=== PATIENT | male | born 1965 | race Two or more races ===

== ENCOUNTER 2017-01-09 11:00 | Inpatient (IN) | payer OTHER ==
[~2017-01-09] VITALS: Ht 172.7 cm; Wt 77.3 kg
[2017-02-22] MEDS ORDERED: LEVO100T PO (08:50)
[2017-02-22] MEDS ORDERED: [UNRECOGNIZED DRUG - OTHER] PO (08:50)
[2017-03-11] MEDS ORDERED: COCAINE TOPICAL SOLN 4%, 4ML ONE ×2 (09:12→09:14)
[2017-03-11] MEDS ORDERED: LIDOCAINE/PF 1%-EPI 1:200K, 30ML ONE (09:12)
[2017-03-11] MEDS ORDERED: THROMBIN 5,000 UNIT VIAL TP ONE (09:12)
[2017-03-11] MEDS ORDERED: BACITRACIN 50,000 UNIT ONE (09:12)
[2017-03-11] MEDS ORDERED: BACITRACIN OINT 500U/GM, 15 GM ONE (09:12)
[2017-03-11 10:47] VITALS: BP 108/70
[2017-03-11] MEDS ORDERED: LIDOCAINE 1%, 2ML ONE (12:12)
[2017-03-11] MEDS ORDERED: LACTATED RINGERS 1,000 ML IV SCH (12:29)
[2017-03-11] MEDS ORDERED: LIDOCAINE 1%, 2ML SQ PRN (12:30)
[2017-03-11] MEDS ORDERED: FENTANYL PF 250 MCG/5ML ONE ×2 (13:16→14:47)
[2017-03-11] MEDS ORDERED: MIDAZOLAM 1 MG/ML, 2ML ONE (13:16)
[2017-03-11] MEDS ORDERED: NEOSTIGMINE 1 MG/ML, 10ML ONE (13:26)
[2017-03-11] MEDS ORDERED: GLYCOPYRROLATE 0.2MG/1ML ONE (13:26)
[2017-03-11] MEDS ORDERED: ROCURONIUM 10 MG/ML ONE (13:26)
[2017-03-11] MEDS ORDERED: PROPOFOL 10 MG/ML, 20ML ONE (13:26)
[2017-03-11] MEDS ORDERED: ONDANSETRON 2MG/ML, 2ML ONE (13:26)
[2017-03-11] MEDS ORDERED: CEFUROXIME 1.5 GM ONE ×2 (13:26→14:17)
[2017-03-11] MEDS ORDERED: HYDROCORTISONE 100 MG INJ. ONE (14:09)
[2017-03-11] MEDS ORDERED: OXYcodone 5 MG/5 ML ORAL.SOL UDC PO PRN (16:00)
[2017-03-11] MEDS ORDERED: METOPROLOL 1 MG/ML, 5ML IV PRN (16:00)
[2017-03-11] MEDS ORDERED: FENTANYL PF 100 MCG/2ML IV PRN ×2 (16:00→18:30)
[2017-03-11] MEDS ORDERED: HYDROmorphone 1 MG/ML, 1ML IV PRN (16:00)
[2017-03-11] MEDS ORDERED: MEPERIDINE/PF 25MG/0.5ML IVPush PRN (16:00)
[2017-03-11] MEDS ORDERED: hydrALAzine 20 MG/ML, 1ML IV PRN (16:00)
[2017-03-11] MEDS ORDERED: HALOPERIDOL 5 MG/ML IV ONE (16:00)
[2017-03-11] MEDS ORDERED: ACETAMINOPHEN 325 MG TABLET PO PRN ×2 (16:00→18:30)
[2017-03-11] MEDS ORDERED: ALBUTEROL/IPRATROPIUM 2.5MG/0.5MG, 3 ML NPPB PRN (16:00)
[2017-03-11] MEDS ORDERED: FENTANYL PF 100 MCG/2ML ONE (16:50)
[2017-03-11] MEDS ORDERED: OXYcodone 5 MG/5 ML ORAL.SOL UDC ONE (16:50)
[2017-03-11] MEDS ORDERED: ACETAMINOPHEN 650 MG SUPP PR PRN (18:30)
[2017-03-11] MEDS ORDERED: MAGNESIUM HYDROXIDE 8%, 30ML UDC PO PRN (18:30)
[2017-03-11] MEDS ORDERED: ONDANSETRON 2MG/ML, 2ML IV PRN (18:30)
[2017-03-11] MEDS ORDERED: HYDROmorphone 2MG TABLET PO PRN (18:30)
[2017-03-11 19:54] LABS: BLOOD UREA NITROGEN 12 mg/dL (7-18)
[2017-03-11] MEDS: D5%-0.9% NACL+KCL 20MEQ 1,000 ML IV SCH (20:49)
[2017-03-11] MEDS: CEFUROXIME 1.5 GM in SODIUM CHLORIDE 0.9% 50 ML IVPB SCH (22:18)
[2017-03-11] MEDS: HYDROCORTISONE 100 MG INJ. IVPush SCH (22:19)
[2017-03-12] MEDS: HYDROcodone/APAP 5/325 TABLET PO PRN ×4 (04:44→19:18)
[2017-03-12 05:00] LABS: BLOOD UREA NITROGEN 11 mg/dL (7-18)
[2017-03-12 05:24] VITALS: BP 115/65
[2017-03-12] MEDS: HYDROCORTISONE 100 MG INJ. IVPush SCH ×2 (06:05→14:44)
[2017-03-12] MEDS: CEFUROXIME 1.5 GM in SODIUM CHLORIDE 0.9% 50 ML IVPB SCH (06:05)
[2017-03-12] MEDS: D5%-0.9% NACL+KCL 20MEQ 1,000 ML IV SCH (07:46)
[2017-03-12] MEDS: LEVOTHYROXINE 100 MCG TABLET PO SCH (07:59)
[2017-03-12] MEDS ORDERED: SENNA/DOCUSATE TABLET PO SCH (09:00)
[2017-03-12 12:17] VITALS: BP_SYST 116; BP_SYST 94; BP_DIAS 53; BP_DIAS 69
[2017-03-12 20:57] VITALS: BP 115/74
[2017-03-12] MEDS: HYDROCORTISONE 20 MG TABLET PO SCH (21:59)
[2017-03-12] MEDS ORDERED: HYDROCORTISONE 100 MG INJ. IVPush SCH (22:00)
[2017-03-13] MEDS: HYDROcodone/APAP 5/325 TABLET PO PRN ×3 (00:09→09:55)
[2017-03-13 02:59] VITALS: BP 110/67
[2017-03-13] MEDS: LEVOTHYROXINE 100 MCG TABLET PO SCH (05:32)
[2017-03-13] MEDS: HYDROCORTISONE 20 MG TABLET PO SCH (05:32)
[2017-03-13 05:45] LABS: BLOOD UREA NITROGEN 17 mg/dL (7-18)
[2017-03-13 07:30] VITALS: BP 117/75
[2017-03-13] MEDS ORDERED: SENNA/DOCUSATE TABLET PO SCH (09:00)
[2017-03-13] MEDS ORDERED: HYDR-3240 PO (09:02)
[2017-03-13 09:57] VITALS: BP 122/70
== END 2017-03-13 11:45 | disposition home or self-care (01) | DRG 615 ==
LOC: ORIP 03-11 10:24 → EDSTATUS 03-11 13:00 → CCU 03-11 17:44 → 4NOR 03-12 12:11 → DCLOUNGE 03-13 11:12
PROVIDERS: ADMIT Neurological Surgery; ATTEND Neurological Surgery
PROC: 00U207Z Supplement Dura Mater with Autologous Tissue Substitute, Open Approach (ICD-10-PCS; 2017-03-11)
PROC: 0NB Head and Facial Bones, Excision (ICD-10-PCS; 2017-03-11)
PROC: 0GB00ZZ Excision of Pituitary Gland, Open Approach (ICD-10-PCS; principal; 2017-03-11 13:00)
DX: D35.2 Benign neoplasm of pituitary gland (principal)
CPT/HCPCS: 36415; 70551; 80048; 86850; 86900; 86923; 87081; 88305; C1713; J0697; J2250; J2405; J2704; J2710; J3010; J3490; A4648; C1781; J1720; J3480; J7120

== ENCOUNTER → 2017-03-04 | Outpatient (CLI) | payer OTHER ==
[~2017-03-04] MED LIST: LEVO100T PO; [UNRECOGNIZED DRUG - OTHER] PO
[2017-03-04 11:23] LABS: EPI LOT# 5695218
[2017-03-04 11:34] LABS: HCT (PFA) 44.4 % (39.2-51.8); PLATELET (PFA) 231 x10^3/uL (130-400)
[2017-03-04 13:36] LABS: EPI CARTRIDGE 100 SECONDS (72-193)
== END | disposition home or self-care (01) ==
LOC: LAB 11:19
PROVIDERS: ATTEND Neurological Surgery
DX: D35.2 Benign neoplasm of pituitary gland (principal)
CPT/HCPCS: 36415; 85014; 85049; 85576

== ENCOUNTER → 2017-07-01 | Outpatient (CLI) | payer OTHER ==
[~2017-07-01] MED LIST changes: +GADOBUTROL 7.5 MMOL/7.5 ML PFS ONE; +HYDR-3240 PO
== END | disposition home or self-care (01) ==
LOC: CFH 11:28
PROVIDERS: ATTEND Radiology Radiation Oncology
DX: D35.2 Benign neoplasm of pituitary gland (principal); Q28.3 Other malformations of cerebral vessels; J32.0 Chronic maxillary sinusitis; J32.2 Chronic ethmoidal sinusitis; G31.9 Degenerative disease of nervous system, unspecified
CPT/HCPCS: 70553; A9585

== ENCOUNTER → 2018-02-11 | Outpatient (CLI) | payer OTHER ==
[~2018-02-11] MED LIST changes: -GADOBUTROL 7.5 MMOL/7.5 ML PFS ONE
== END ==
LOC: ROC 08:04
PROVIDERS: ATTEND Radiology Radiation Oncology
DX: Z08 Encounter for follow-up examination after completed treatment for malignant neoplasm (principal); D35.2 Benign neoplasm of pituitary gland
CPT/HCPCS: 99213; G0463

== ENCOUNTER → 2019-03-17 | Outpatient (CLI) | payer OTHER | END | disposition home or self-care (01) | LOC: ROC 07:24 | PROVIDERS: ATTEND Radiology Radiation Oncology | DX: Z08 Encounter for follow-up examination after completed treatment for malignant neoplasm (principal); Z86.39 Personal history of other endocrine, nutritional and metabolic disease | CPT/HCPCS: 99213; G0463 ==